=== PATIENT | female | born 1980 | race Caucasian/White ===

== ENCOUNTER → 2017-10-13 14:28 | Outpatient (CLI) | payer BC, SELFPAY ==
--- NOTE | 2017-10-13 14:30 | MM_ITS ---
MM Dig screening mamm BI w/CAD CAD Screening COMPARISON: None, this is baseline INDICATION: There is a history of breast cancer patient maternal aunt diagnosed before menopause. TECHNIQUE: Standard CC and MLO images were obtained. R2 CAD reviewed. FINDINGS: Prominent diffuse heterogenic fibroglandular densities are seen throughout both rest somewhat lessening the sensitivity of mammography . There is a possible asymmetric density with irregular borders lower outer quadrant right breast. This could very well be a summation shadow but recommend patient return for spot compression views and ultrasound will probably be necessary as well. There is no other suspicious lesion in either breast and there are no suspicious microcalcifications. IMPRESSION: Diffusely dense parenchymal pattern with possible asymmetric density right breast and suggest patient return for additional imaging BI-RADS Category: 0 Need Additional Imaging Evaluation RECOMMENDED FOLLOW-UP: IMM - IMMEDIATE FOLLOW-UP RECOMMENDED (A letter has been sent to the patient regarding results of the study.)
--- NOTE | 2017-10-13 14:32 | CA_ITS ---
PROCEDURE: 2-D M-mode and color Doppler study INDICATIONS FOR THE TEST: Chest pain + COPD Heart Murmur Tobacco Smoking Palpitations Fatigue+ Syncope Edema Hypertension Diabetes Mellitus Rheumatic Fever SOB NGUYEN Obesity+Hyperlipidemia Family History HD Additional History PATIENT INFORMATION HEIGHT: 63 WEIGHT:212 GENDER: Female B/P:108/79 2-D/M-MODE INTERPRETATION: 2-D MEASUREMENTS OBSERVED VALUES IN CMS Right Ventricular Dimension (RVDd) 2.4 Interventricular Septum (Thickness)(IVsd) 0.9 Left Ventricular Internal Dimensions(LVIDd) 4.6 Left Ventricular Posterior Wall (Thickness)(LVPWd) 0.9 Aortic Root 3.4 Aortic Cusp Separation 2.2 Left Atrial Dimensions (LAD) 3.7 2D 1. Left atrium is normal size, left ventricle is normal size, there is no concentric left ventricular hypertrophy, visually estimated ejection fraction of 55% with no obvious regional wall motion abnormality. 2. The right atrium and right ventricle are normal size and contractility. 3. The aortic, mitral and tricuspid valvular grossly normal. 4. The pulmonic valve is poorly visualized. 5. No significant pericardial effusion noted. DOPPLER INTERROGATION: Doppler interrogation of the aortic, mitral and tricuspid valvular presence of mild mitral and tricuspid regurgitation, tricuspid regurgitant jet velocity is insufficient for calculation of the right ventricular systolic pressure, diastolic parameters are within normal range. CONCLUSION: 1. Normal left ventricular size, preserved left ventricular systolic function, visually estimated ejection fraction 55% with no obvious regional wall motion abnormality, diastolic parameters are within normal range. 2. Mild mitral and tricuspid regurgitation 3. No significant pericardial effusion noted.
--- NOTE | 2017-10-13 15:18 | XR_ITS ---
XR chest 2V HISTORY: ITS.REASON: FH HEART DISEASE, ELEVATED CARDIAC CRP ORDERING PHYSICIAN: Sherman Arreola MD PATIENT AGE: 37 years COMPARISON: None available FINDINGS: The cardiomediastinal silhouette and pulmonary vascularity are within normal limits. The left somewhat poor inspiration. There are couple of small pulmonary nodules right lower lung silva most likely originating noncalcified granulomas. However if there is a strong smoking history suggested follow-up CT scan the chest for baseline evaluation of suspected pulmonary nodules. There is no pleural fluid. IMPRESSION: Probable evolving granulomatous disease no acute pneumonic infiltrate seen. See discussion above regarding pulmonary nodules
== END ==
PROVIDERS: PCP Physician Assistant; Visit Provider Obstetrics & Gynecology
DX: Z12.31 Encounter for screening mammogram for malignant neoplasm of breast (principal); R79.89 Other specified abnormal findings of blood chemistry
CPT/HCPCS: 71046; 77067; 93005; 93306

== ENCOUNTER → 2017-10-14 13:04 | Outpatient (CLI) | payer BC, SELFPAY ==
--- NOTE | 2017-10-14 13:07 | CT_ITS ---
CT chest wo con INDICATION: Abnormal chest x-ray with no previous studies for comparison ITS.REASON: PULMONARY NODULE ORDERING PHYSICIAN: Mandy Waldron PATIENT AGE: 37 years COMPARISON: None TECHNIQUE: Axial images are obtained without contrast. Sagittal and coronal reformatted images are reviewed as well. All CT scans at the facility use one or more dose reduction, viz: automated exposure control; ma/kV adjustment per patient size (including targeted exams where dose is matched to indication; i.e. head); or iterative reconstruction technique. FINDINGS: The lung silva are well expanded. There is no acute infiltrate seen. There is a small calcified right hilar node and a 2-3 small calcified granulomas in the peripheral aspect of the right lower lobe. There are no noncalcified pulmonary nodules. There is no abnormal superior mediastinal or or hilar lymphadenopathy. Cardiac size is borderline, the vascularity is normal. There is no pleural fluid. IMPRESSION: Evidence of old granulomatous disease, no other significant abnormality noted
[2017-10-14 17:55] LABS: Erythrocyte Sedimentation Rate 20 mm/hr (0-20)
== END ==
PROVIDERS: Internal Medicine; PCP Physician Assistant; Visit Provider Physician Assistant
DX: R91.1 Solitary pulmonary nodule (principal)
CPT/HCPCS: 36415; 71250; 85651

== ENCOUNTER → 2017-10-20 08:17 | Outpatient (CLI) | payer BC, SELFPAY | PROVIDERS: PCP Physician Assistant; Visit Provider Internal Medicine | DX: R79.89 Other specified abnormal findings of blood chemistry (principal); R07.9 Chest pain, unspecified; R06.09 Other forms of dyspnea; Z82.49 Family history of ischemic heart disease and other diseases of the circulatory system | CPT/HCPCS: 93017 ==

== ENCOUNTER → 2017-11-06 14:32 | Outpatient (CLI) | payer BC, SELFPAY ==
--- NOTE | 2017-11-06 14:36 | MM_ITS ---
MM Dig mamm DX unilat RT CAD, US breast RT complete INDICATION: Follow-up abnormal mammogram ORDERING PHYSICIAN: Mandy Waldron PATIENT AGE: 37 years COMPARISON: 10/13/2017 TECHNIQUE: Problem-solving views performed along with right breast ultrasound FINDINGS: There is dense fibroglandular tissue which decreases the sensitivity of mammography. Asymmetric density noted in the retroareolar region may represent a small cyst along with asymmetric fibroglandular tissue. There remains scattered areas of asymmetry on the rolled views. The asymmetric density in the inferior right breast on MLO view does appear to compress out. Right breast ultrasound: 4 mm hypoechoic area at 2:00, 4 mm hypoechoic area 6:00 near the nipple. No suspicious nodules are evident. IMPRESSION: Probably benign findings. No convincing evidence of malignancy. Asymmetric density is noted in the retroareolar region may represent overlying fibroglandular tissue and small cysts. Recommend 6 month mammographic and sonographic follow-up. Also recommend correlation with physical exam in this patient with dense breast tissue. Negative mammogram and negative ultrasound does not exclude the possibility of malignancy. BI-RADS Category: 3 Benign Finding Short Term Follow-up RECOMMENDED FOLLOW-UP: 6M - 6 MONTH FOLLOW-UP (A letter has been sent to the patient regarding results of the study.)
== END ==
PROVIDERS: PCP Physician Assistant; Visit Provider Physician Assistant
DX: R92.8 Other abnormal and inconclusive findings on diagnostic imaging of breast (principal)
CPT/HCPCS: 76641; 77065

== ENCOUNTER → 2018-05-21 14:27 | Outpatient (CLI) | payer BC, SELFPAY ==
--- NOTE | 2018-05-21 14:37 | MM_ITS ---
MM Dig mamm DX unilat RT CAD, US breast RT complete INDICATION: Follow-up abnormal mammogram ORDERING PHYSICIAN: Mandy Waldron PATIENT AGE: 37 years COMPARISON: 10/13/2017, 11/12/2017 TECHNIQUE: Standard images are performed along with spot compression views and rolled views and right breast ultrasound FINDINGS: There is dense fibroglandular tissue which decreases the sensitivity of mammography. Asymmetric density is once again noted in the retroareolar region slightly to the right of midline. Does appear less apparent especially on the focal spot compression view. This millimeters related to asymmetric fibroglandular tissue. No malignant appearing mass or malignant appearing microcalcification is evident. Right breast ultrasound: There is a 5 mm cyst at 6:00 which may in part account for the asymmetric density in the retroareolar region. No suspicious abnormalities are evident. There is heterogeneous pericolic fibroglandular tissue. IMPRESSION: Probably benign findings. Asymmetric density in the retroareolar region felt to be related to fibroglandular tissue and a small cyst. No convincing evidence of malignancy. Suggest repositioning screening mammogram in October 2018 BI-RADS Category: 2 Benign Finding(s) RECOMMENDED FOLLOW-UP: 6M - 6 MONTH FOLLOW-UP (A letter has been sent to the patient regarding results of the study.)
== END ==
PROVIDERS: PCP Physician Assistant; Visit Provider Physician Assistant
DX: R92.8 Other abnormal and inconclusive findings on diagnostic imaging of breast (principal)
CPT/HCPCS: 76641; 77065

== ENCOUNTER → 2018-11-19 16:19 | Outpatient (CLI) | payer BC, SELFPAY ==
--- NOTE | 2018-11-19 16:21 | MM_ITS ---
PROCEDURE: MM DIG SCREENING MAMM BI W/CAD CLINICAL INDICATION: screening There is a history of breast cancer in the patient's maternal aunt diagnosed in her 40s. COMPARISON: [facility] MM Dig screening mamm BI w/CAD from 10/13/2017 DXRT MM Dig mamm DX unilat RT CAD from 11/06/2017 DXRT MM Dig mamm DX unilat RT CAD from 05/21/2018 TECHNIQUE: Standard CC and MLO images were obtained. R2 CAD reviewed. FINDINGS: Moderate diffuse fibroglandular densities are seen in both breasts. The findings are fairly symmetrical bilaterally. There is no suspicious lesion in either breast and no suspicious microcalcifications. There couple nodes right axilla. IMPRESSION: Moderate breast density with no suspicious lesions seen BI-RAD Category: 1 Negative FOLLOW-UP: 1YR 1 Year Follow-up (A letter has been sent to the patient regarding results of the study.) Dictated by: Dr. Thang Beavre MD 11/21/2018 14:38 Signed by: <Electronically signed by Dr. Thang Beaver MD in [place]> 11/21/2018 14:38
== END ==
PROVIDERS: PCP Family Medicine; Visit Provider Obstetrics & Gynecology
DX: Z12.31 Encounter for screening mammogram for malignant neoplasm of breast (principal)
CPT/HCPCS: 77067

== ENCOUNTER → 2019-08-19 11:01 | Outpatient (CLI) | payer BC, SELFPAY ==
[2019-08-19 11:30] LABS: Basophils % 0.7 % (0.1-2.0); Eosinophils # 0.1 K/mm3 (0.0-0.4); Eosinophils % 2.1 % (0.1-12.0); Hematocrit 38.7 % (37.0-47.0); Hemoglobin 12.3 g/dL (12.2-16.2); Lymphocytes # 1.6 K/mm3 (0.7-4.5); Lymphocytes % 25.2 % (10-50); Mean Corpuscular HGB Conc 31.9 g/dL (31.8-35.4); Mean Corpuscular Hemoglobin 29.2 pg (27.0-31.2); Mean Corpuscular Volume 91.7 fl (81-99); Mean Platelet Volume 9.2 fl (7.4-10.4); Monocytes # 0.3 K/mm3 (0.1-1.0); Monocytes % 5.3 % (1.7-9.3); Neutrophils # 4.3 K/mm3 (1.8-7.8); Neutrophils % 66.6 % (37.0-80.0); Platelet Count 383 K/mm3 (142-424); Red Blood Count 4.22 M/mm3 (4.20-5.40); Red Cell Distribution Width 12.6 % (11.5-17.5); White Blood Count 6.4 K/mm3 (4.8-10.8)
[2019-08-19 12:58] LABS: Alanine Aminotransferase 12 U/L (12-78); Albumin Level 4.4 g/dl (3.5-5.0); Albumin/Globulin Ratio 1.5 (1.1-1.8); Alkaline Phosphatase 69 U/L (38-126); Anion Gap 10.7 mEq/L (5-15); Aspartate Amino Transferase 19 U/L (14-36); Bilirubin,Total 0.3 mg/dl (0.2-1.3); Blood Urea Nitrogen 11 mg/dl (7-17); Calcium 9.8 mg/dl (8.4-10.2); Carbon Dioxide 26 mmol/L (22.0-30.0); Chloride 103 mmol/L (98-107); Chol/HDL Ratio 2.3 (1-3.5); Cholesterol 169 mg/dl (140-200); Estimated Glomerular Filt Rate 111 ml/min (>60); GFR (African American) 135 ML/MIN (>60); Glucose 99 mg/dl (74-100); HDL Cholesterol 75 mg/dl (40-60); Potassium 4.7 mmoL/L (3.5-5.1); Sodium 135 mmol/L (136-145); Total Protein,Serum 7.4 g/dl (6.3-8.2); Triglycerides 96 mg/dl (30-150); VLDL Cholesterol 19 mg/dL (0-40)
[2019-08-19 13:09] LABS: Direct LDL Cholesterol 92.19 mg/dL (100-129)
[2019-08-19 13:10] LABS: Hemoglobin A1C 5.2 % (4.0-6.0)
[2019-08-19 13:18] LABS: Triiodothryronine (T3) Uptake 23 % (23.5-40.5)
[2019-08-19 13:31] LABS: Thyroid Stimulating Hormone 1.17 uIU/mL (0.465-4.68)
[2019-08-20 17:13] LABS: Insulin Level Total 16.3 uIU/mL (2.6-24.9)
== END ==
PROVIDERS: Visit Provider Family Medicine
DX: Z00.00 Encounter for general adult medical examination without abnormal findings (principal); R63.5 Abnormal weight gain; R53.83 Other fatigue
CPT/HCPCS: 36415; 80053; 80061; 83036; 83525; 84436; 84443; 84479; 85025

== ENCOUNTER → 2019-11-25 15:23 | Outpatient (CLI) | payer BC, SELFPAY ==
--- NOTE | 2019-11-25 15:23 | MM_ITS ---
PROCEDURE: MM DIG SCREENING MAMM BI W/CAD Digital Breast Tomosynthesis Included CLINICAL INDICATION: Routine Screening Mammogram There is a history of breast cancer in the patient's maternal aunt diagnosed at age 40. The patient currently is on control pills. COMPARISON: MG [facility] MM Dig screening mamm BI w/CAD from 10/13/2017 MG DXRT MM Dig mamm DX unilat RT CAD from 11/06/2017 MG DXRT MM Dig mamm DX unilat RT CAD from 05/21/2018 MG MM DIG SCREENING MAMM BI W/CAD from 11/19/2018 TECHNIQUE: Standard CC and MLO images and 3D Tomosynthesis was obtained. R2 CAD reviewed. FINDINGS: Prominent diffuse somewhat heterogenic fibroglandular densities are seen throughout both breasts. Praveen images are most helpful in this type of dense breast parenchyma. There is no suspicious lesion and no suspicious microcalcifications. IMPRESSION: Moderate breast density with no suspicious lesions seen BI-RAD Category: 1 Negative FOLLOW-UP: 1YR 1 Year Follow-up (A letter has been sent to the patient regarding results of the study.) Dictated by: Dr. Thang Beaver MD 11/28/2019 17:07 Dr. Thang Beaver MD in [place] 11/28/2019 17:07
[2019-11-25 18:21] LABS: T4 (Thyroxine) 12.7 ug/dl (5.53-11.0); Triiodothryronine (T3) Uptake 24 % (23.5-40.5)
[2019-11-25 18:35] LABS: Thyroid Stimulating Hormone 2.13 uIU/mL (0.465-4.68)
[2019-11-25 19:45] LABS: Intact Parathyroid Hormone 39.1 pg/mL (7.5-53.5)
== END ==
PROVIDERS: PCP Family Medicine; Visit Provider Obstetrics & Gynecology
DX: Z12.31 Encounter for screening mammogram for malignant neoplasm of breast (principal); Z01.419 Encounter for gynecological examination (general) (routine) without abnormal findings; R63.4 Abnormal weight loss; Z80.3 Family history of malignant neoplasm of breast
CPT/HCPCS: 36415; 77063; 77067; 83970; 84436; 84443; 84479

== ENCOUNTER → 2019-11-25 16:51 | Outpatient (CLI) | payer BC, SELFPAY | PROVIDERS: Visit Provider Obstetrics & Gynecology | DX: R53.83 Other fatigue (principal) | CPT/HCPCS: 36415; 83970; 84436; 84443; 84479 ==

== ENCOUNTER → 2020-11-17 07:46 | Outpatient (CLI) | payer BC, SELFPAY ==
[2020-11-17 16:42] LABS: Hemoglobin A1C 5.2 % (4.0-6.0)
[2020-11-17 16:47] LABS: Alanine Aminotransferase 12 U/L (12-78); Albumin Level 3.7 g/dl (3.5-5.0); Albumin/Globulin Ratio 1.4 (1.1-1.8); Alkaline Phosphatase 68 U/L (38-126); Anion Gap 11.5 mEq/L (5-15); Aspartate Amino Transferase 16 U/L (14-36); Bilirubin,Total 0.3 mg/dl (0.2-1.3); Blood Urea Nitrogen 12 mg/dl (7-17); Calcium 8.7 mg/dl (8.4-10.2); Carbon Dioxide 26 mmol/L (22.0-30.0); Chloride 104 mmol/L (98-107); Chol/HDL Ratio 2.8 (1-3.5); Cholesterol 146 mg/dl (140-200); Estimated Glomerular Filt Rate 110 ml/min (>60); GFR (African American) 133 ML/MIN (>60); Globulin 2.6 g/dL (1.3-3.2); Glucose 108 mg/dl (74-100); HDL Cholesterol 52 mg/dl (40-60); Potassium 4.5 mmoL/L (3.5-5.1); Sodium 137 mmol/L (136-145); Total Protein,Serum 6.3 g/dl (6.3-8.2); Triglycerides 158 mg/dl (30-150); VLDL Cholesterol 32 mg/dL (0-40)
[2020-11-17 16:50] LABS: Basophils # 0.1 K/mm3 (0-0.2); Basophils % 1.3 % (0.1-2.0); Eosinophils # 0.2 K/mm3 (0.0-0.4); Eosinophils % 2.3 % (0.1-12.0); Hematocrit 34.3 % (37.0-47.0); Hemoglobin 11.3 g/dL (12.2-16.2); Lymphocytes # 1.8 K/mm3 (0.7-4.5); Lymphocytes % 25.4 % (10-50); Mean Corpuscular HGB Conc 32.9 g/dL (31.8-35.4); Mean Corpuscular Hemoglobin 28.9 pg (27.0-31.2); Mean Corpuscular Volume 87.7 fl (81-99); Mean Platelet Volume 10.8 fl (7.4-10.4); Monocytes # 0.4 K/mm3 (0.1-1.0); Monocytes % 6.1 % (1.7-9.3); Neutrophils # 4.5 K/mm3 (1.8-7.8); Neutrophils % 64.9 % (37.0-80.0); Platelet Count 430 K/mm3 (142-424); Red Blood Count 3.91 M/mm3 (4.20-5.40); Red Cell Distribution Width 12.8 % (11.5-17.5)
[2020-11-17 16:57] LABS: Direct LDL Cholesterol 64.82 mg/dL (100-129)
[2020-11-17 17:04] LABS: 25-OH Vitamin D, Total 104 ng/mL (30-100)
[2020-11-17 17:36] LABS: Vitamin B12 378 pg/mL (239-931)
[2020-11-17 18:57] LABS: HCG Qualitative, Serum Negative (Negative)
[2020-11-17 19:15] LABS: Free Thyroxine Index 2.6 ug/dL (5.93-13.13); T4 (Thyroxine) 10.8 ug/dl (5.53-11.0); Triiodothryronine (T3) Uptake 24 % (23.5-40.5)
[2020-11-17 19:29] LABS: Thyroid Stimulating Hormone 0.74 uIU/mL (0.465-4.68)
[2020-11-18 10:14] LABS: FSH 2.5 mIU/mL (.); LH 1.1 mIU/mL (.)
[2020-11-18 11:54] LABS: Insulin Level Total 23.9 uIU/mL (2.6-24.9)
== END ==
PROVIDERS: Visit Provider Family Medicine
DX: Z00.00 Encounter for general adult medical examination without abnormal findings (principal); R63.5 Abnormal weight gain; R53.83 Other fatigue; N93.8 Other specified abnormal uterine and vaginal bleeding; E67.3 Hypervitaminosis D
CPT/HCPCS: 36415; 80053; 80061; 82306; 82607; 83001; 83002; 83036; 83525; 84436; 84443; 84479; 84703; 85025

== ENCOUNTER → 2020-11-30 16:10 | Outpatient (CLI) | payer BC, SELFPAY ==
--- NOTE | 2020-11-30 16:10 | MM_ITS ---
PROCEDURE: MM DIG SCREENING MAMM BI W/CAD Digital Breast Tomosynthesis Included CLINICAL INDICATION: screening mammogram COMPARISON: MG DXRT MM Dig mamm DX unilat RT CAD from 05/21/2018 MG MM DIG SCREENING MAMM BI W/CAD from 11/19/2018 MG MM DIG SCREENING MAMM BI W/CAD from 11/25/2019 TECHNIQUE: Standard CC and MLO images and 3D Tomosynthesis was obtained. R2 CAD reviewed. FINDINGS: The breasts are heterogeneously dense which may obscure small masses. No suspicious appearing mass, malignant-appearing microcalcification, architectural distortion, or skin thickening. No significant change IMPRESSION: No evidence of malignancy BI-RAD Category: 1 Negative FOLLOW-UP: 1 YR 1 Year Follow-up (A letter has been sent to the patient regarding results of the study.) Dictated by: Cody Villalobos MD 12/13/2020 08:59 Cody Villalobos MD in [place] 12/13/2020 08:59
== END ==
PROVIDERS: PCP Family Medicine; Visit Provider Obstetrics & Gynecology
DX: Z12.31 Encounter for screening mammogram for malignant neoplasm of breast (principal)
CPT/HCPCS: 77063; 77067

== ENCOUNTER → 2021-04-23 11:37 | Outpatient (CLI) | payer BC, SELFPAY ==
[2021-04-23 12:35] LABS: Basophils # 0.1 K/mm3 (0-0.2); Basophils % 0.8 % (0.1-2.0); Eosinophils # 0.1 K/mm3 (0.0-0.4); Eosinophils % 0.7 % (0.1-12.0); Hematocrit 37.5 % (37.0-47.0); Hemoglobin 12.1 g/dL (12.2-16.2); Lymphocytes # 1.6 K/mm3 (0.7-4.5); Lymphocytes % 15.5 % (10-50); Mean Corpuscular HGB Conc 32.3 g/dL (31.8-35.4); Mean Corpuscular Hemoglobin 29.7 pg (27.0-31.2); Mean Corpuscular Volume 91.8 fl (81-99); Mean Platelet Volume 9.7 fl (7.4-10.4); Monocytes # 0.3 K/mm3 (0.1-1.0); Monocytes % 2.9 % (1.7-9.3); Neutrophils # 8.1 K/mm3 (1.8-7.8); Neutrophils % 80.1 % (37.0-80.0); Platelet Count 424 K/mm3 (142-424); Red Blood Count 4.09 M/mm3 (4.20-5.40); Red Cell Distribution Width 12.8 % (11.5-17.5); White Blood Count 10.2 K/mm3 (4.8-10.8)
[2021-04-23 13:24] LABS: Chloride 103 mmol/L (98-107); Potassium 4.6 mmoL/L (3.5-5.1); Sodium 139 mmol/L (136-145)
[2021-04-23 13:26] LABS: Alanine Aminotransferase 13 U/L (12-78); Anion Gap 15.6 mEq/L (5-15); Aspartate Amino Transferase 20 U/L (14-36); Bilirubin,Unconjugated 0.1 mg/dL (0.0-1.1); Blood Urea Nitrogen 12 mg/dl (7-17); Carbon Dioxide 25 mmol/L (22.0-30.0); Estimated Glomerular Filt Rate 110 ml/min (>60); GFR (African American) 133 ML/MIN (>60)
[2021-04-23 13:27] LABS: Albumin Level 4.4 g/dl (3.5-5.0); Alkaline Phosphatase 64 U/L (38-126); Bilirubin,Direct 0.2 mg/dl (0.0-0.4); Bilirubin,Indirect 0.1 mg/dL (0.0-0.9); Bilirubin,Total 0.3 mg/dl (0.2-1.3); Calcium 9.3 mg/dl (8.4-10.2); Chol/HDL Ratio 2.3 (1-3.5); Cholesterol 180 mg/dl (140-200); Glucose 93 mg/dl (74-100); HDL Cholesterol 79 mg/dl (40-60); Total Protein,Serum 7.3 g/dl (6.3-8.2); Triglycerides 126 mg/dl (30-150); VLDL Cholesterol 25 mg/dL (0-40)
[2021-04-23 13:33] LABS: C-Reactive Protein 25.8 mg/L (0-4)
[2021-04-23 13:38] LABS: Direct LDL Cholesterol 82.24 mg/dL (100-129)
[2021-04-23 13:46] LABS: Erythrocyte Sedimentation Rate > 140 mm/hr (0-20)
[2021-04-23 13:53] LABS: Free T4 (Free Thyroxine) 0.71 ng/dl (0.78-2.19)
[2021-04-23 13:57] LABS: Thyroid Stimulating Hormone 2.01 uIU/mL (0.465-4.68)
--- NOTE | 2021-04-23 14:45 | CA_ITS ---
APPROVED REPORT EXAM: Comprehensive 2D, Doppler, and color-flow Echocardiogram Hearing And Speech Assistant: Sally Gaines RT(R) Ht: 5 ft 2 in Wt: 223lbs BSA: 2.00 BP: 133/74 mmHg Indications: CP, SOB, Family history of HD. 2D Dimensions LVOT 1.93 cm (M/F) 1.5-2.5 LA Volume 32.20 mL LA Volume Index [id number] mL/m2 (M/F) 16-34 M-Mode Dimensions RVDd 3.00 cm (0.9-2.6) LA Diam 3.32 cm (1.9-4.0) LVDd 4.26 cm (3.5-5.7) Ao Diam 2.36 cm (2.0-3.7) LVDs 2.89 cm (3.5-5.7) IVSd 0.53 cm (0.6-1.1) PWd 0.84 cm (0.6-1.1) EF (Teich) 60.80% FS 32.20% EDV (Teich) 81.30 mL ESV (Teich) 31.90 mL LV Diastology E Decel Time 193.00 (160-240 msec) E/A Ratio 1.1 MED E' 8.70 (< 7 cm/sec) E'/MED E' Ratio 11.46 (>14) LAT E' 15.20 (<10 cm/sec) E/LAT E' Ratio 6.56 (>14) Mitral Valve MV E Max Jovanni. 100.00 (40-130 cm/s) MV A Velocity 87.00 (40-130 cm/s) E/A Ratio 1.15 MV Decel. Time 193.00 (160-240 ms) MV PHT 57.00 ms Left Ventricle Left atrium normal size, left ventricle is normal size, there is no concentric left ventricular hypertrophy, visually estimated ejection fraction 55% with no regional wall motion abnormality, diastolic parameters are within normal range. Right Ventricle Right atrium and right ventricle are normal size and contractility. Aortic Valve Aortic valve is grossly normal, there is no aortic stenosis or aortic insufficiency. Mitral Valve Mitral valve is grossly normal, there is trace mitral regurgitation. Tricuspid Valve Tricuspid valve grossly normal, there is trace tricuspid regurgitation, tricuspid regurgitation jet velocity is inadequate for calculation of the right ventricular systolic pressure. Pulmonic Valve Pulmonic valve is poorly visualized. Great Vessels Aortic root is normal size. Inferior vena cava is poorly visualized. Pericardium No significant pericardial effusion noted. Conclusion 1. Normal left ventricular size, preserved left ventricular systolic function, visually estimated ejection fraction 55% with no regional wall motion abnormality, diastolic parameters are within normal range. 2. Trace mitral and tricuspid regurgitation. 3. No significant pericardial effusion noted. Electronically signed by : Clyde Bello MD 04/23/2021 17:42:31
[2021-04-24 13:26] LABS: Insulin Level Total 26.3 uIU/mL (2.6-24.9)
== END ==
PROVIDERS: PCP Family Medicine; Visit Provider Physician Assistant
DX: R07.89 Other chest pain (principal); I63.9 Cerebral infarction, unspecified; M62.89 Other specified disorders of muscle; I11.9 Hypertensive heart disease without heart failure; E11.9 Type 2 diabetes mellitus without complications; R53.83 Other fatigue
CPT/HCPCS: 36415; 80048; 80061; 80076; 83525; 84439; 84443; 85025; 85651; 86140; 93306

== ENCOUNTER → 2021-04-27 13:26 | Outpatient (CLI) | payer BC, SELFPAY ==
--- NOTE | 2021-04-27 | CA_ITS ---
APPROVED REPORT Exam: Exercise Treadmill Technologist: Meghan Kong, Ht: 5 ft 2 in Wt: 223 lbs BSA: 2.00 m2 HR: 81 bpm BP: 131/65 mmHg Medical History Medications: TricyclEN,,,,, Stress Test Details Test: Trena HR Resting HR: 109 bpm Max Heart Rate (APMHR): 179 bpm Max HR Achieved: 170 bpm Target HR (85% APMHR): 152 bpm % of APMHR: 95 Recovery HR: 126 bpm BP Resting BP: 150/76 mmHg Max BP: 159/70 mmHg Recovery BP: 153.0/66.0 mmHg ECG Clinical Exercise duration: 04:14 min Highest Stage Achieved: Exercise capacity: 7.0 METs Stress ECG Conclusion During trena protocol pt experinced SOB. No CP noted. No arrhythmias noted. Test Summary REST . . . . . . . Sitting REST . . . . . . . Sitting REST . . . . . . . Standing REST 03:18 0.0 0.0 109 . 150/ 76 . . Stage 1 01:00 10.0 1.7 123 . . . . Stage 1 02:00 10.0 1.7 141 . . . . Stage 1 03:00 10.0 1.7 149 . 159/ 70 . . Stage 2 01:00 12.0 2.5 156 . . . . Stage 2 01:14 12.0 2.5 165 . . . Stop exercise at 04:14 RECOVERY 01:00 0.0 0.0 138 . . . . RECOVERY 02:00 0.0 0.0 113 . . . . RECOVERY 03:00 0.0 0.0 101 . 153/ 66 . . RECOVERY 04:00 0.0 0.0 99 . 153/ 66 . . RECOVERY 05:00 0.0 0.0 89 . 153/ 66 . . RECOVERY 05:30 0.0 0.0 93 . 153/ 66 . . Electronically signed by : Clyde Bello MD 04/27/2021 15:07:08
--- NOTE | 2021-04-27 13:49 | CA_ITS ---
APPROVED REPORT EXAM: Comprehensive 2D, Doppler, and color-flow Echocardiogram Branch Employment Coordinator: Sally Gaines RT(R) Ht: 5 ft 2 in Wt: 223lbs BSA: 2.00 BP: 133/74 mmHg Indications: CP, SOB Stress Test Details HR Max Heart Rate (APMHR): 179.451355 bpm Target HR (85% APMHR): 152.534594 bpm BP ECG Conclusion 1. Patient exercised on Jesus protocol for 4 minutes and 14 seconds, achieved 7.1 METs of workload on treadmill, the blood pressure response to exercise was abnormal, patient describes no chest pain with exercise. 2. Normal left ventricular systolic function with no regional wall motion abnormality at rest, with exercise there is no segmental wall motion abnormality to suggest underlying ischemic heart disease. 3. Normal exercise stress echo except for abnormal blood pressure response with exercise. Electronically signed by : Clyde Bello MD 04/27/2021 15:09:12
[2021-04-27 14:27] LABS: Prothrombin Time 10.3 seconds (10.1-12.5)
[2021-04-27 14:31] LABS: D-Dimer 0.57 ug/mL (0.0-0.5)
--- NOTE | 2021-04-27 14:41 | XR_ITS ---
FINAL REPORT TECHNIQUE: Chest PA & Lateral CLINICAL HISTORY: CHEST PAIN COMPARISON: October 13, 2017 FINDINGS: 2 views of the chest were performed. The heart size is normal. The mediastinum is within normal limits. There is no acute cardiopulmonary process. There are calcified granulomas in the right middle lobe. There are no pleural effusions. There is no pneumothorax. The bony thorax appears intact. IMPRESSION: No acute cardiopulmonary process. Calcified granulomas in the right middle lobe. Reviewed, Interpreted and Dictated by Jesse Tran MD Transcribed by Analilia Sung Authenticated by Jesse Tran MD on 04/27/2021 04:00:13 PM [facility]
[2021-04-27 15:09] LABS: Uric Acid 4.8 mg/dl (2.5-6.2)
[2021-04-27 15:14] LABS: C-Reactive Protein 17.5 mg/L (0-4)
[2021-04-27 16:16] LABS: Vitamin B12 423 pg/mL (239-931)
[2021-04-27 16:17] LABS: Folate 8.69 ng/mL
[2021-04-29 08:17] LABS: Antistreptolysin O Ab 46.2 IU/mL (0.0-200.0); RA Latex Turbid. <10.0 IU/mL (<14.0)
[2021-04-30 12:44] LABS: Anti-DNA (DS) Ab Qn 1 IU/mL (0-9); RNP Antibodies <0.2 AI (0.0-0.9); Sjogren's Anti-SS-A 0.2 AI (0.0-0.9); Sjogren's Anti-SS-B <0.2 AI (0.0-0.9)
[2021-05-21 18:00] LABS: Antinuclear Antibodies (ANA) NEGATIVE
== END ==
PROVIDERS: Visit Provider Internal Medicine
DX: R07.89 Other chest pain (principal); M62.89 Other specified disorders of muscle; R53.83 Other fatigue
CPT/HCPCS: 36415; 71046; 82607; 82746; 84550; 85378; 85610; 86038; 86060; 86140; 86225; 86235; 86431; 93017; 93350

== ENCOUNTER → 2021-12-14 08:40 | Outpatient (CLI) | payer BC, SELFPAY | PROVIDERS: PCP Physician Assistant; Visit Provider Physician Assistant | DX: M13.0 Polyarthritis, unspecified (principal) ==

== ENCOUNTER → 2021-12-14 16:11 | Outpatient (CLI) | payer BC, SELFPAY ==
--- NOTE | 2021-12-14 16:12 | MM_ITS ---
PROCEDURE INFORMATION: Exam: MG Bilateral Screening 3D Mammography Exam date and time: 12/14/2021 4:04 PM Age: 41 years old Clinical indication: Screening. A maternal aunt had breast cancer. TECHNIQUE: Imaging protocol: Bilateral Screening tomosynthesis and 2D mammography including computer-aided detection (CAD) when performed. COMPARISON: 1. MG MM DIG SCREENING MAMM BI W/CAD 11/30/2020 4:28 PM 2. MG MM DIG SCREENING MAMM BI W/CAD 11/25/2019 3:47 PM 3. MG MM DIG SCREENING MAMM BI W/CAD 11/19/2018 4:32 PM 4. MG DXRT MM Dig mamm DX unilat RT CAD 05/21/2018 2:48 PM FINDINGS: MAMMOGRAPHY: Breast composition: The breasts are heterogeneously dense, which may obscure small masses. Mass: None. Architectural distortion: None. Calcifications: No suspicious calcifications. Asymmetric density: None. Skin thickening: None. Axillary adenopathy: None. IMPRESSION: No mammographic evidence of malignancy. Annual screening is recommended unless otherwise clinically indicated. ASSESSMENT: BI-RADS Category 1: Negative
--- NOTE | 2021-12-14 16:13 | XR_ITS ---
PROCEDURE INFORMATION: Exam: XR Chest Exam date and time: 12/14/2021 4:25 PM Age: 41 years old Clinical indication: Abnormal findings; Lung mass or nodule; Not specified; Additional info: Follow-up on lung nodule TECHNIQUE: Imaging protocol: Radiologic exam of the chest. Views: 2 views. COMPARISON: CR XR CHEST 2V 04/27/2021 2:45 PM FINDINGS: Lungs: Some asymmetric chronic ovoid and tubular opacities projected over the mid-lateral right chest on the frontal view, not as well seen on the lateral radiograph; corresponding opacities in the superior segment of right lower lobe. These correspond with cluster of partially calcified granulomas in the right lower lobe seen on a previous chest CT of 10/14/2017. No definite change compared with the prior exams. No focal consolidation or acute findings in the left lung. Question tiny granuloma or dense blood vessel at the lateral left lung base, unchanged compared with the previous chest x-ray. Pleural spaces: Unremarkable. No significant pleural effusion. No pneumothorax. Heart/Mediastinum: The cardiac silhouette is normal. Bones/joints: There are mild spinal degenerative changes, with multilevel disc narrrowing and spondylosis. Soft tissues: Chronic right upper quadrant abdominal surgical clips, correlate for cholecystectomy. IMPRESSION: 1. No acute findings or change compared with 04/27/2021. 2. Chronic granulomatous changes in the superior segment of the right lower lobe as seen on prior CT of 10/14/2017, corresponding with some peripheral nodular densities seen on today's chest x-ray.
--- NOTE | 2021-12-14 16:13 | XR_ITS ---
PROCEDURE INFORMATION: Exam: XR Abdomen Exam date and time: 12/14/2021 4:25 PM Age: 41 years old Clinical indication: Abdominal pain; Flank; Left; Additional info: Left flank pain TECHNIQUE: Imaging protocol: Radiologic exam of the abdomen. Views: Frontal supine view of the abdomen. 1 View. Two images received. COMPARISON: CR XR CHEST 2V 04/27/2021 2:45 PM FINDINGS: Lungs: Tiny calcified granulomas in the left upper quadrant, corresponding with splenic granulomas seen on the prior CT from 10/14/2017. Gastrointestinal tract: Nonobstructive bowel gas pattern, mild gaseous and fecal distention of the proximal colon and sigmoid colon. No dilated loops. Organs: Cholecystectomy clips in the right upper quadrant. No definite renal calculi. There are 2 tiny calcifications of 1-2 mm in the lower left pelvis which could be phleboliths or urinary tract stones. Bones/joints: Mild spinal degenerative changes and sacroiliitis. Pelvic enthesophytes.There is no evidence of acute fracture. Soft tissues: No acute findings in the soft tissues. IMPRESSION: 1. No calcified renal stones are detected. However, there is a cluster of 2 tiny calcifications in the lower left pelvis of 1-2 mm which could be phleboliths versus urinary tract stones. 2. Nonobstructive bowel gas pattern. 3. Calcified splenic granulomas. 4. Additional nonemergency and chronic findings as above.
[2021-12-14 19:08] LABS: Basophils # 0.1 K/mm3 (0-0.2); Basophils % 0.9 % (0.1-2.0); Eosinophils # 0.2 K/mm3 (0.0-0.4); Eosinophils % 2.2 % (0.1-12.0); Hematocrit 36.1 % (37.0-47.0); Hemoglobin 11.9 g/dL (12.2-16.2); Lymphocytes # 2.1 K/mm3 (0.7-4.5); Lymphocytes % 21.5 % (10-50); Mean Corpuscular HGB Conc 33.1 g/dL (31.8-35.4); Mean Corpuscular Hemoglobin 29.8 pg (27.0-31.2); Mean Platelet Volume 10.8 fl (7.4-10.4); Monocytes # 0.5 K/mm3 (0.1-1.0); Monocytes % 5.5 % (1.7-9.3); Neutrophils # 6.8 K/mm3 (1.8-7.8); Neutrophils % 69.9 % (37.0-80.0); Platelet Count 497 K/mm3 (142-424); Red Blood Count 4.01 M/mm3 (4.20-5.40); Red Cell Distribution Width 12.7 % (11.5-17.5); White Blood Count 9.7 K/mm3 (4.8-10.8)
[2021-12-14 19:30] LABS: Alanine Aminotransferase 17 U/L (12-78); Albumin Level 3.8 g/dl (3.5-5.0); Albumin/Globulin Ratio 1.4 (1.1-1.8); Alkaline Phosphatase 91 U/L (38-126); Anion Gap 14.5 mEq/L (5-15); Aspartate Amino Transferase 25 U/L (14-36); Bilirubin,Total < 0.1 mg/dl (0.2-1.3); Blood Urea Nitrogen 14 mg/dl (7-17); Calcium 8.4 mg/dl (8.4-10.2); Carbon Dioxide 23 mmol/L (22.0-30.0); Chloride 103 mmol/L (98-107); Chol/HDL Ratio 2.8 (1-3.5); Cholesterol 165 mg/dl (140-200); Estimated Glomerular Filt Rate 92 ml/min (>60); GFR (African American) 111 ML/MIN (>60); Globulin 2.7 g/dL (1.3-3.2); Glucose 106 mg/dl (74-100); HDL Cholesterol 59 mg/dl (40-60); Potassium 4.5 mmoL/L (3.5-5.1); Sodium 136 mmol/L (136-145); Total Protein,Serum 6.5 g/dl (6.3-8.2); Triglycerides 113 mg/dl (30-150); VLDL Cholesterol 23 mg/dL (0-40)
[2021-12-14 19:41] LABS: C-Reactive Protein 26.1 mg/L (0-4); Direct LDL Cholesterol 84.41 mg/dL (100-129)
[2021-12-14 20:01] LABS: Thyroid Stimulating Hormone 2.18 uIU/mL (0.465-4.68)
[2021-12-14 20:11] LABS: Erythrocyte Sedimentation Rate 27 mm/hr (0-20)
[2021-12-14 20:20] LABS: Vitamin B12 294 pg/mL (239-931)
[2021-12-14 21:45] LABS: Hemoglobin A1C 5.4 % (4.0-6.0)
[2021-12-17 14:10] LABS: C-Peptide 4.7 ng/mL (1.1-4.4); Insulin Level Total 28.5 uIU/mL (2.6-24.9)
[2021-12-24 20:13] LABS: 1,25 Dihydroxy Vitamin D 67 pg/mL (.); 1,25-Dihydroxy, Vitamin D-2 <10 pg/mL (.); 1,25-Dihydroxy, Vitamin D-3 63 pg/mL (.)
== END ==
PROVIDERS: Physician Assistant; PCP Internal Medicine Cardiovascular Disease; Visit Provider Obstetrics & Gynecology
DX: Z12.31 Encounter for screening mammogram for malignant neoplasm of breast (principal); M13.0 Polyarthritis, unspecified; Z82.49 Family history of ischemic heart disease and other diseases of the circulatory system; R10.9 Unspecified abdominal pain; E67.3 Hypervitaminosis D; Z79.899 Other long term (current) drug therapy; R79.89 Other specified abnormal findings of blood chemistry
CPT/HCPCS: 71046; 74018; 77063; 77067; 80053; 80061; 82533; 82607; 82652; 83036; 83525; 84443; 84681; 85025; 85651; 86140

== ENCOUNTER → 2021-12-20 07:09 | Outpatient (CLI) | payer BC, SELFPAY ==
[2021-12-20 18:59] LABS: Iron 78 ug/dL (37-170)
[2021-12-20 19:09] LABS: Total Iron Binding Capacity 337 ug/dL (265-497)
[2021-12-20 19:23] LABS: 25-OH Vitamin D, Total 44.4 ng/mL (30-100)
[2021-12-20 19:36] LABS: Ferritin 49.7 ng/ml (6.24-137)
[2021-12-21 15:25] LABS: Intact Parathyroid Hormone 3.8 pg/mL (7.5-53.5)
== END ==
PROVIDERS: PCP Physician Assistant; Visit Provider Physician Assistant
DX: R10.9 Unspecified abdominal pain (principal); D64.9 Anemia, unspecified; R79.89 Other specified abnormal findings of blood chemistry; R79.82 Elevated C-reactive protein (CRP)
CPT/HCPCS: 82306; 82728; 83540; 83550; 83970

== ENCOUNTER → 2021-12-25 06:36 | Outpatient (CLI) | payer BC, SELFPAY ==
--- NOTE | 2021-12-25 06:37 | CT_ITS ---
FINAL REPORT TECHNIQUE: Axial images through the abdomen and pelvis was performed by computed tomography. This study was performed with techniques to keep radiation doses as low as reasonably achievable (ALARA). Individualized dose reduction techniques using automated exposure control or adjustment of mA and/or kV according to the patient's size were employed. CLINICAL HISTORY: abnormal finding on x-ray, left flank pain FINDINGS: Abdomen: Lung bases are clear. Liver, spleen, pancreas and adrenal glands have a normal CT appearance in their limited unenhanced state. The patient is status post cholecystectomy. The kidneys show no stone disease or obstruction. No obvious renal mass is present. No ureteral stones are present. Pelvis: There is mild fecal impaction. The appendix is not definitely identified but there are no secondary findings to suggest appendicitis. No distal ureteral stones are seen. Bladder is unremarkable. There are bilateral ovarian cysts measuring up to 3.4 cm on the right and 3.6 cm on the left. The uterus is unremarkable. No fluid collection or adenopathy is seen. IMPRESSION: Fecal impaction. No evidence of upper urinary tract stone disease or obstruction. Bilateral ovarian cysts. Reviewed, Interpreted and Dictated by Robert Haas MD Transcribed by Bri Jenkins Authenticated and [facility]
[2021-12-25 18:40] LABS: Albumin Level 3.6 g/dl (3.5-5.0); Calcium 8.5 mg/dl (8.4-10.2); Magnesium 1.9 mg/dl (1.6-2.3); Phosphorous 3.8 mg/dl (2.5-4.5)
[2021-12-25 18:50] LABS: Intact Parathyroid Hormone 63.1 pg/mL (7.5-53.5)
== END ==
PROVIDERS: PCP Physician Assistant; Visit Provider Physician Assistant
DX: R10.9 Unspecified abdominal pain (principal); R93.5 Abnormal findings on diagnostic imaging of other abdominal regions, including retroperitoneum
CPT/HCPCS: 74176; 82040; 82310; 83735; 83970; 84100

== ENCOUNTER → 2021-12-25 14:00 | Outpatient (CLI) | payer BC, SELFPAY | PROVIDERS: PCP Physician Assistant; Visit Provider Physician Assistant | DX: N20.0 Calculus of kidney (principal) | CPT/HCPCS: 83970 ==

== ENCOUNTER → 2022-07-26 14:41 | Outpatient (CLI) | payer BC, SELFPAY ==
--- NOTE | 2022-07-26 | ECG_ITS ---
APPROVED REPORT Exam: Resting ECG HR:73 bpm ECG Measurements Heart Rate 73 AXES AR 166 P 60 QRSd 92 QRS 58 QT 384 T 16 QTc 410 Conclusion SINUS RHYTHM NORMAL ECG UNCONFIRMED REPORT Electronically signed by : Kody Castro MD 07/27/2022 15:31:05
== END ==
PROVIDERS: PCP Family Medicine
DX: E66.9 Obesity, unspecified (principal); Z68.41 Body mass index [BMI] 40.0-44.9, adult
CPT/HCPCS: 93005

== ENCOUNTER → 2022-09-10 12:24 | Outpatient (CLI) | payer BC, SELFPAY ==
--- NOTE | 2022-09-10 12:26 | US_ITS ---
FINAL REPORT TECHNIQUE: Ultrasound images of the kidneys and bladder were obtained. CLINICAL HISTORY: .pelvic pain-- hematuria FINDINGS: The right kidney measures 10.3 cm in length. It is normal in echogenicity. There is no hydronephrosis. There is a small probable stone in the lower pole of the right kidney. The left kidney measures 10.5 cm in length. It is normal in echogenicity. There is no hydronephrosis. The spleen is unremarkable. IMPRESSION: Small probable right renal stone. Reviewed, Interpreted and Dictated by Kevin Martinez III, MD Transcribed by Bri Jenkins Authenticated and [facility]
--- NOTE | 2022-09-10 12:26 | US_ITS ---
FINAL REPORT CLINICAL HISTORY: hematuria FINDINGS: Limited sonographic images of the urinary bladder were obtained. Bladder volume is 463.47 mL. Postvoid volume is 18.14 mL. IMPRESSION: Small amount of postvoid residual of 18 mL. Reviewed, Interpreted and Dictated by Kevin Martinez III, MD Transcribed by Bri Jenkins Authenticated and [facility]
== END ==
PROVIDERS: PCP Family Medicine; Visit Provider Family Medicine
DX: R10.30 Lower abdominal pain, unspecified (principal); R31.9 Hematuria, unspecified
CPT/HCPCS: 76770; 76857

== ENCOUNTER → 2022-10-14 08:23 | Outpatient (CLI) | payer BC, SELFPAY ==
[2022-10-14 11:07] LABS: Vitamin B12 495 pg/mL (239-931)
[2022-10-14 11:58] LABS: 25-OH Vitamin D, Total 70.2 ng/mL (30-100)
[2022-10-14 17:08] LABS: Basophils # 0.1 K/mm3 (0-0.2); Basophils % 0.8 % (0.1-2.0); Eosinophils # 0.3 K/mm3 (0.0-0.4); Eosinophils % 3.3 % (0.1-12.0); Hematocrit 38.3 % (37.0-47.0); Lymphocytes # 2.4 K/mm3 (0.7-4.5); Lymphocytes % 29.4 % (10-50); Mean Corpuscular HGB Conc 31.2 g/dL (31.8-35.4); Mean Corpuscular Hemoglobin 28.2 pg (27.0-31.2); Mean Corpuscular Volume 90.3 fl (81-99); Mean Platelet Volume 10.5 fl (7.4-10.4); Monocytes # 0.6 K/mm3 (0.1-1.0); Monocytes % 6.8 % (1.7-9.3); Neutrophils # 4.9 K/mm3 (1.8-7.8); Neutrophils % 59.7 % (37.0-80.0); Platelet Count 522 K/mm3 (142-424); Red Blood Count 4.24 M/mm3 (4.20-5.40); Red Cell Distribution Width 12.8 % (11.5-17.5); White Blood Count 8.1 K/mm3 (4.8-10.8)
[2022-10-14 17:12] LABS: Alanine Aminotransferase 24 U/L (12-78); Albumin/Globulin Ratio 1.4 (1.1-1.8); Alkaline Phosphatase 82 U/L (38-126); Anion Gap 12.5 mEq/L (5-15); Aspartate Amino Transferase 23 U/L (14-36); Blood Urea Nitrogen 17 mg/dl (7-17); Calcium 9.7 mg/dl (8.4-10.2); Carbon Dioxide 22 mmol/L (22.0-30.0); Chloride 107 mmol/L (98-107); Cholesterol 182 mg/dl (140-200); Estimated Glomerular Filt Rate 91 ml/min (>60); GFR (African American) 111 ML/MIN (>60); Globulin 2.8 g/dL (1.3-3.2); Glucose 100 mg/dl (74-100); HDL Cholesterol 61 mg/dl (40-60); Potassium 4.5 mmoL/L (3.5-5.1); Sodium 137 mmol/L (136-145); Total Protein,Serum 6.8 g/dl (6.3-8.2); Triglycerides 149 mg/dl (30-150); VLDL Cholesterol 30 mg/dL (0-40)
[2022-10-14 17:13] LABS: Bilirubin,Total < 0.1 mg/dl (0.2-1.3)
[2022-10-14 17:23] LABS: Direct LDL Cholesterol 85.65 mg/dL (100-129)
[2022-10-14 17:34] LABS: Hemoglobin A1C 5.4 % (4.0-6.0)
[2022-10-14 17:42] LABS: Thyroid Stimulating Hormone 2.05 uIU/mL (0.465-4.68)
[2022-10-16 12:13] LABS: Insulin Level Total 23.2 uIU/mL (2.6-24.9)
== END ==
PROVIDERS: Nurse Practitioner Family; PCP Family Medicine; Visit Provider Family Medicine
DX: R53.83 Other fatigue (principal); E10.65 Type 1 diabetes mellitus with hyperglycemia; E88.81 Metabolic syndrome and other insulin resistance; E66.9 Obesity, unspecified; Z68.41 Body mass index [BMI] 40.0-44.9, adult
CPT/HCPCS: 36415; 80053; 80061; 82306; 82607; 83036; 83525; 84443; 85025

== ENCOUNTER → 2022-12-20 16:51 | Outpatient (CLI) | payer BC, SELFPAY ==
--- NOTE | 2022-12-20 16:52 | MM_ITS ---
PROCEDURE INFORMATION: Exam: MG Bilateral Screening 3D Mammography Exam date and time: 12/20/2022 4:41 PM Age: 42 years old Clinical indication: Screening mammogram. Additional info: Screening mammogram TECHNIQUE: Imaging protocol: Bilateral Screening tomosynthesis and 2D mammography including computer-aided detection (CAD) when performed. COMPARISON: 1. MG MM DIG SCREENING MAMM BI W/CAD 12/14/2021 4:04 PM 2. MG MM DIG SCREENING MAMM BI W/CAD 11/30/2020 4:28 PM 3. MG MM DIG SCREENING MAMM BI W/CAD 11/25/2019 3:47 PM 4. MG MM DIG SCREENING MAMM BI W/CAD 11/19/2018 4:32 PM FINDINGS: MAMMOGRAPHY: Breast composition: The breast is heterogeneously dense, which may obscure small masses. Mass: None. Architectural distortion: No new or suspicious architectural distortion. Calcifications: No new or suspicious calcifications are present Asymmetric density: No new or suspicious asymmetric density is present Skin thickening: None. Axillary adenopathy: None. IMPRESSION: No mammographic evidence of malignancy. Recommend annual screening mammography unless otherwise clinically indicated. ASSESSMENT: BI-RADS category 1: Negative
== END ==
PROVIDERS: PCP Family Medicine; Visit Provider Obstetrics & Gynecology
DX: Z12.31 Encounter for screening mammogram for malignant neoplasm of breast (principal)
CPT/HCPCS: 77063; 77067

== ENCOUNTER → 2023-02-04 07:35 | Outpatient (CLI) | payer BC, SELFPAY ==
[2023-02-04 17:14] LABS: Basophils # 0.1 K/mm3 (0-0.2); Basophils % 0.8 % (0.1-2.0); Eosinophils # 0.2 K/mm3 (0.0-0.4); Eosinophils % 2.8 % (0.1-12.0); Hematocrit 37.6 % (37.0-47.0); Hemoglobin 12.5 g/dL (12.2-16.2); Lymphocytes # 2.7 K/mm3 (0.7-4.5); Lymphocytes % 31.1 % (10-50); Mean Corpuscular HGB Conc 33.2 g/dL (31.8-35.4); Mean Corpuscular Hemoglobin 30.2 pg (27.0-31.2); Mean Corpuscular Volume 90.9 fl (81-99); Mean Platelet Volume 9.4 fl (7.4-10.4); Monocytes # 0.6 K/mm3 (0.1-1.0); Monocytes % 6.6 % (1.7-9.3); Neutrophils # 5.1 K/mm3 (1.8-7.8); Neutrophils % 58.6 % (37.0-80.0); Platelet Count 461 K/mm3 (142-424); Red Blood Count 4.13 M/mm3 (4.20-5.40); Red Cell Distribution Width 12.7 % (11.5-17.5); White Blood Count 8.7 K/mm3 (4.8-10.8)
[2023-02-04 18:07] LABS: Alanine Aminotransferase 18 U/L (12-78); Albumin Level 4.2 g/dl (3.5-5.0); Albumin/Globulin Ratio 1.4 (1.1-1.8); Alkaline Phosphatase 78 U/L (38-126); Amylase 53 U/L (30-110); Anion Gap 13.2 mEq/L (5-15); Aspartate Amino Transferase 23 U/L (14-36); Bilirubin,Total 0.2 mg/dl (0.2-1.3); Blood Urea Nitrogen 10 mg/dl (7-17); Calcium 9.4 mg/dl (8.4-10.2); Carbon Dioxide 29 mmol/L (22.0-30.0); Chloride 99 mmol/L (98-107); Estimated Glomerular Filt Rate 91 ml/min (>60); GFR (African American) 111 ML/MIN (>60); Glucose 102 mg/dl (74-100); Lipase 94 U/L (23-300); Potassium 4.2 mmoL/L (3.5-5.1); Sodium 137 mmol/L (136-145); Total Protein,Serum 7.2 g/dl (6.3-8.2)
[2023-02-04 18:29] LABS: Troponin I < 0.01 ng/ml (0.00-0.034)
[2023-02-04 18:39] LABS: Thyroid Stimulating Hormone 1.88 uIU/mL (0.465-4.68)
== END ==
PROVIDERS: PCP Nurse Practitioner Family; Visit Provider Nurse Practitioner Family
DX: R07.9 Chest pain, unspecified (principal); R53.83 Other fatigue; I10 Essential (primary) hypertension
CPT/HCPCS: 80053; 82150; 83690; 84443; 84484; 85025

== ENCOUNTER → 2023-02-06 12:02 | Outpatient (CLI) | payer BC, SELFPAY ==
[2023-02-06 12:39] LABS: Erythrocyte Sedimentation Rate 34 mm/hr (0-20)
[2023-02-06 12:43] LABS: D-Dimer 0.94 ug/mL (0.0-0.5)
[2023-02-06 13:05] LABS: C-Reactive Protein 25.7 mg/L (0-4)
== END ==
PROVIDERS: PCP Family Medicine; Visit Provider Internal Medicine
DX: R07.89 Other chest pain (principal); R53.83 Other fatigue; Z82.49 Family history of ischemic heart disease and other diseases of the circulatory system
CPT/HCPCS: 36415; 85378; 85651; 86140

== ENCOUNTER → 2023-02-07 11:15 | Outpatient (CLI) | payer BC, SELFPAY ==
--- NOTE | 2023-02-07 11:25 | CT_ITS ---
FINAL REPORT TECHNIQUE: Axial imaging of the chest is obtained after the administration of contrast. 3-D MIP reformatted images were also obtained and reviewed per PE protocol. This study was performed with techniques to keep radiation doses as low as reasonably achievable (ALARA). Individualized dose reduction techniques using automated exposure control or adjustment of mA and/or kV according to the patient's size were employed. CLINICAL HISTORY: elevated d dimer COMPARISON: 10/14/2017 FINDINGS: The pulmonary arteries are well filled. There is no evidence of pulmonary embolus. There is no aortic dissection or intimal flap. There is a left breast nodule which is new measuring 2.2 cm. There is no mediastinal, hilar, or axillary lymphadenopathy. The lungs are clear. There are multiple calcifications in the right lower lobe with focal area of air trapping. There is no pleural or pericardial effusion. Limited evaluation of the upper abdomen is without acute abnormality. No acute osseous abnormality. IMPRESSION: No evidence of pulmonary embolism or aortic dissection. No acute abnormality. Left breast nodule. Correlation with mammography is recommended. Reviewed, Interpreted and Dictated by Dayna Crystal MD Transcribed by Bri Jenkins Authenticated and [facility]
--- NOTE | 2023-02-07 12:20 | XR_ITS ---
FINAL REPORT CLINICAL HISTORY: chest pain COMPARISON: 12/14/2021 FINDINGS: PA and lateral views of the chest are obtained. The cardiac and mediastinal silhouettes are within normal limits. There are clustered nodules in the right lower lung which are unchanged, likely related to granulomatous disease. There is no pleural effusion, pneumothorax, or acute osseous abnormality. IMPRESSION: No radiographic evidence of acute cardiac or pulmonary disease. Reviewed, Interpreted and Dictated by Dayna Crystal MD Transcribed by Bri Jenkins Authenticated and [facility]
--- NOTE | 2023-02-07 12:50 | CA_ITS ---
APPROVED REPORT EXAM: Comprehensive 2D, Doppler, and color-flow Echocardiogram Coal Deliverer: Evelin MonetLA Ht: 5 ft 2 in Wt: 226lbs BSA: 2.01 HR: 68 bpm BP: 145/67 mmHg Indications: Chest pain, HTN M-Mode Dimensions RVDd 2.71 cm (0.9-2.6) LVDd 4.34 cm (3.5-5.7) LVDs 2.87 cm (3.5-5.7) IVSd 0.68 cm (0.6-1.1) PWd 0.61 cm (0.6-1.1) EF (Teich) 63.00% FS 33.90% EDV (Teich) 84.90 mL TAPSE 2.60 (<1.7) ESV (Teich) 31.40 mL LV Diastology E/A Ratio 1.06 Aortic Valve AO VTI 30.96 (18-25 cm) Mitral Valve MV A Velocity 99.00 (40-130 cm/s) Left Ventricle The left ventricle is normal size. The left ventricular systolic function is normal. The left ventricular ejection fraction is within the normal range. Proximal septal thickening is noted. There is normal LV segmental wall motion. The left ventricular diastolic function is normal. LVEF is 55-60%. Right Ventricle The right ventricle is normal size. The right ventricular systolic function is normal. Atria The left atrium size is normal. The right atrium size is normal. There is no Doppler evidence of interatrial shunt. Aortic Valve The aortic valve opens well. There is no aortic valvular stenosis. No aortic regurgitation is present. Mitral Valve The mitral valve is normal in structure. No evidence of mitral valve stenosis. There is no mitral valve regurgitation noted. Tricuspid Valve The tricuspid valve leaflets are thin and pliable. Mild tricuspid regurgitation. RVSP is 25-30 mmHg. Pulmonic Valve The pulmonary valve is normal in structure. Trace pulmonic regurgitation. Great Vessels The aortic root is normal in size. The ascending aorta is normal in size. IVC is normal in size and collapses >50% with inspiration. Pericardium There is no pericardial effusion. Other Information Study Quality: Adequate Conclusion Normal biventricular systolic function. Mild TR. Electronically signed by : Montse Rock MD 02/15/2023 18:02:52
== END ==
PROVIDERS: PCP Family Medicine; Visit Provider Internal Medicine
DX: R07.89 Other chest pain (principal); R79.89 Other specified abnormal findings of blood chemistry; R53.83 Other fatigue; Z82.49 Family history of ischemic heart disease and other diseases of the circulatory system
CPT/HCPCS: 71046; 71275; 93306; Q9967

== ENCOUNTER → 2023-02-12 06:45 | Outpatient (CLI) | payer BC, SELFPAY ==
--- NOTE | 2023-02-12 06:53 | US_ITS ---
PROCEDURE INFORMATION: Exam: US Left Breast, Complete Exam date and time: 02/12/2023 7:06 AM Age: 42 years old Clinical indication: Nodule left breast from CT scan TECHNIQUE: Imaging protocol: Complete ultrasound of all four quadrants of the left breast and the retroareolar regions, including ultrasound of the axilla when performed. COMPARISON: MG MM DIG SCREENING MAMM BI W/CAD 12/20/2022 4:41 PM FINDINGS: Breast: Sonographic images of the left breast including the retroareolar region, all 4 quadrants and the axilla do not demonstrate any solid masses. 1.6 cm cyst in the left upper inner quadrant corresponds to the mass on CT scan. Few additional subcentimeter cysts are scattered in the left breast. No architectural distortion or acoustical shadowing. No skin thickening or axillary adenopathy. IMPRESSION: Mass on CT scan in the left upper inner quadrant corresponds to a benign cyst on sonography.Annual bilateral mammographic screening is recommended unless otherwise clinically indicated. ASSESSMENT: BI-RADS Category 2: Benign
== END ==
PROVIDERS: PCP Family Medicine; Visit Provider Nurse Practitioner Family
DX: N63.20 Unspecified lump in the left breast, unspecified quadrant (principal)
CPT/HCPCS: 76641

== ENCOUNTER 2023-07-21 18:00 | Outpatient (CLI) | payer BC, SELFPAY ==
[2023-07-21 16:26] LABS: Basophils # 0.1 K/mm3 (0-0.2); Basophils % 1.6 % (0.1-2.0); Eosinophils # 0.3 K/mm3 (0.0-0.4); Eosinophils % 3.2 % (0.1-12.0); Hematocrit 39.1 % (37.0-47.0); Hemoglobin 12.6 g/dL (12.2-16.2); Lymphocytes # 2.2 K/mm3 (0.7-4.5); Lymphocytes % 28.6 % (10-50); Mean Corpuscular HGB Conc 32.3 g/dL (31.8-35.4); Mean Corpuscular Hemoglobin 29.6 pg (27.0-31.2); Mean Corpuscular Volume 91.6 fl (81-99); Mean Platelet Volume 10.7 fl (7.4-10.4); Monocytes # 0.5 K/mm3 (0.1-1.0); Monocytes % 6.5 % (1.7-9.3); Neutrophils # 4.7 K/mm3 (1.8-7.8); Neutrophils % 60.1 % (37.0-80.0); Platelet Count 488 K/mm3 (142-424); Red Blood Count 4.26 M/mm3 (4.20-5.40); Red Cell Distribution Width 13.7 % (11.5-17.5); White Blood Count 7.8 K/mm3 (4.8-10.8)
[2023-07-21 17:17] LABS: Alanine Aminotransferase 47 U/L (12-78); Albumin Level 4.2 g/dl (3.5-5.0); Albumin/Globulin Ratio 1.5 (1.1-1.8); Alkaline Phosphatase 83 U/L (38-126); Anion Gap 10.6 mEq/L (5-15); Aspartate Amino Transferase 38 U/L (14-36); Bilirubin,Total 0.4 mg/dl (0.2-1.3); Blood Urea Nitrogen 15 mg/dl (7-17); Calcium 9.4 mg/dl (8.4-10.2); Carbon Dioxide 27 mmol/L (22.0-30.0); Chloride 105 mmol/L (98-107); Cholesterol 198 mg/dl (140-200); Estimated Glomerular Filt Rate 91 ml/min (>60); GFR (African American) 111 ML/MIN (>60); Globulin 2.8 g/dL (1.3-3.2); Glucose 107 mg/dl (74-100); HDL Cholesterol 50 mg/dl (40-60); Potassium 4.6 mmoL/L (3.5-5.1); Sodium 138 mmol/L (136-145); Triglycerides 145 mg/dl (30-150); VLDL Cholesterol 29 mg/dL (0-40)
[2023-07-21 17:27] LABS: Direct LDL Cholesterol 102.68 mg/dL (100-129)
[2023-07-21 17:48] LABS: Thyroid Stimulating Hormone 1.27 uIU/mL (0.465-4.68)
[2023-07-21 19:43] LABS: Hemoglobin A1C 5.6 % (4.0-6.0)
[2023-07-23 08:18] LABS: FSH 23.9 mIU/mL (.); LH 11.8 mIU/mL (.)
[2023-07-23 13:26] LABS: Insulin Level Total 21.5 uIU/mL (2.6-24.9)
[2023-07-30 01:14] LABS: Estrogen 77 pg/mL (.)
== END 2023-07-21 23:59 | disposition home or self-care (01) ==
LOC: LAB.DROPOF 07-22 10:37
PROVIDERS: PCP Family Medicine; Visit Provider Family Medicine
DX: Z00.00 Encounter for general adult medical examination without abnormal findings; R74.01 Elevation of levels of liver transaminase levels; E88.819 Insulin resistance, unspecified; Z79.899 Other long term (current) drug therapy
CPT/HCPCS: 80053; 80061; 82672; 83001; 83002; 83036; 83525; 84443; 85025

== ENCOUNTER 2023-07-22 18:00 | Outpatient (CLI) | payer BC, SELFPAY ==
[2023-07-22 17:43] LABS: Vitamin B12 515 pg/mL (239-931)
[2023-07-22 20:00] LABS: 25-OH Vitamin D, Total 74.8 ng/mL (30-100)
== END 2023-07-22 23:59 | disposition home or self-care (01) ==
LOC: LAB.DROPOF 07-23 07:57
PROVIDERS: PCP Family Medicine; Visit Provider Family Medicine
DX: E55.9 Vitamin D deficiency, unspecified (principal)
CPT/HCPCS: 82306; 82607

== ENCOUNTER 2024-03-03 15:15 | Outpatient (CLI) | payer BC, SELFPAY ==
--- NOTE | 2024-03-03 15:19 | US_ITS ---
PROCEDURE INFORMATION: Exam: US Right Breast, Complete US Left Breast, Complete MG Bilateral Screening 3D Mammography Exam date and time: 03/03/2024 3:27 PM Age: 43 years old Clinical indication: Screening examination; chest pain TECHNIQUE: Imaging protocol: Complete ultrasound of all four quadrants of the right breast and the retroareolar regions, including ultrasound of the axilla when performed. Complete ultrasound of all four quadrants of the left breast and the retroareolar regions, including ultrasound of the axilla when performed. Bilateral Screening tomosynthesis and 2D mammography including computer-aided detection (CAD) when performed. COMPARISON: BREASTRT US breast RT complete 05/21/2018 2:48 PM COMPARISON MORE: US BREAST LT COMPLETE 02/12/2023 7:06 AM COMPARISON MORE: MG MM DIG SCREENING MAMM BI W/CAD 12/20/2022 4:41 PM FINDINGS: MAMMOGRAPHY: Breast composition: There are scattered areas of fibroglandular density. Mass: 2 cm ovoid mass in the upper inner left breast. Architectural distortion: None. Calcifications: None. Asymmetric density: None. Skin thickening: None. Axillary adenopathy: None. ULTRASOUND: Right solid masses: None. Right cystic masses: Minimal subcentimeter cystic change is present in the right breast. Right architectural distortion: None. Right acoustical shadowing: None. Right skin thickening: None. Right axillary adenopathy: None. Left solid masses: None. Left cystic masses: 2.3 cm cyst in the 10 o'clock axis corresponding to the mass on mammography. Additional cluster of cysts or a solitary cyst with few internal septations in the 12 o'clock axis 3 cm from the nipple measuring 0.8 cm in combined dimension, unchanged compared to prior sonogram. Left architectural distortion: None. Left acoustical shadowing: None. Left skin thickening: None. Left axillary adenopathy: None. IMPRESSION: No mammographic or sonographic evidence of malignancy. Bilateral cystic change. Annual screening is recommended unless otherwise clinically indicated. ASSESSMENT: BI-RADS Category 2: Benign.
== END 2024-03-03 23:59 | disposition home or self-care (01) ==
LOC: RAD 15:16
PROVIDERS: PCP Family Medicine; Visit Provider Family Medicine
DX: Z12.31 Encounter for screening mammogram for malignant neoplasm of breast (principal); R92.8 Other abnormal and inconclusive findings on diagnostic imaging of breast
CPT/HCPCS: 76641; 77063; 77067

== ENCOUNTER 2024-03-29 10:02 | Outpatient (CLI) | payer BC, SELFPAY ==
[2024-03-29 10:26] LABS: Basophils # 0.1 K/mm3 (0-0.2); Basophils % 0.8 % (0.1-2.0); Eosinophils # 0.2 K/mm3 (0.0-0.4); Eosinophils % 2.1 % (0.1-12.0); Lymphocytes # 2.2 K/mm3 (0.7-4.5); Lymphocytes % 23.3 % (10-50); Mean Corpuscular HGB Conc 32.4 g/dL (31.8-35.4); Mean Corpuscular Hemoglobin 28.3 pg (27.0-31.2); Mean Corpuscular Volume 87.3 fl (81-99); Mean Platelet Volume 11.2 fl (7.4-10.4); Monocytes # 0.6 K/mm3 (0.1-1.0); Monocytes % 6.6 % (1.7-9.3); Neutrophils # 6.2 K/mm3 (1.8-7.8); Neutrophils % 66.8 % (37.0-80.0); Platelet Count 456 K/mm3 (142-424); Red Blood Count 4.24 M/mm3 (4.20-5.40); Red Cell Distribution Width 12.6 % (11.5-17.5); White Blood Count 9.3 K/mm3 (4.8-10.8)
[2024-03-29 10:49] LABS: Hemoglobin A1C 5.7 % (4.0-6.0)
[2024-03-29 11:12] LABS: Albumin/Globulin Ratio 1.6 (1.1-1.8); Estimated Glomerular Filt Rate 91 ml/min (>60); GFR (African American) 110 ML/MIN (>60); Globulin 2.5 g/dL (1.3-3.2)
[2024-03-29 11:13] LABS: Chol/HDL Ratio 2.9 (1-3.5); VLDL Cholesterol 36 mg/dL (0-40)
[2024-03-29 11:30] LABS: 25-OH Vitamin D, Total 59.7 ng/mL (30-100)
[2024-03-29 11:50] LABS: Alanine Aminotransferase 24 U/L (12-78); Albumin Level 4.1 g/dl (3.5-5.0); Alkaline Phosphatase 82 U/L (38-126); Anion Gap 13.7 mEq/L (5-15); Aspartate Amino Transferase 28 U/L (14-36); Bilirubin,Total 0.5 mg/dl (0.2-1.3); Blood Urea Nitrogen 12 mg/dl (7-17); Calcium 9.5 mg/dl (8.4-10.2); Carbon Dioxide 24 mmol/L (22.0-30.0); Chloride 105 mmol/L (98-107); Cholesterol 184 mg/dl (140-200); Glucose 98 mg/dl (74-100); HDL Cholesterol 64 mg/dl (40-60); Potassium 4.7 mmoL/L (3.5-5.1); Sodium 138 mmol/L (136-145); Total Protein,Serum 6.6 g/dl (6.3-8.2); Triglycerides 179 mg/dl (30-150)
[2024-03-29 12:01] LABS: Direct LDL Cholesterol 85.35 mg/dL (100-129)
[2024-03-29 12:20] LABS: Thyroid Stimulating Hormone 2.12 uIU/mL (0.465-4.68)
[2024-03-29 12:40] LABS: Vitamin B12 395 pg/mL (239-931)
[2024-03-30 04:07] LABS: FSH 19.6 mIU/mL (.); Progesterone 0.1 ng/mL (.)
[2024-03-30 08:12] LABS: Insulin Level Total 16.9 uIU/mL (2.6-24.9)
[2024-04-01 14:15] LABS: Estrogen 183 pg/mL (.)
== END 2024-03-29 23:59 | disposition home or self-care (01) ==
LOC: LAB 10:03
PROVIDERS: PCP Family Medicine; Visit Provider Nurse Practitioner Family
DX: E88.819 Insulin resistance, unspecified (principal); R23.2 Flushing; R53.83 Other fatigue
CPT/HCPCS: 36415; 80050; 80053; 80061; 82306; 82533; 82607; 82672; 83001; 83002; 83036; 83525; 84144; 84436; 84443; 85025

== ENCOUNTER 2024-07-28 08:56 | Outpatient (CLI) | payer BC, SELFPAY ==
[2024-07-28 17:24] LABS: Basophils # 0.1 K/mm3 (0-0.2); Basophils % 0.9 % (0.1-2.0); Eosinophils # 0.2 Kmm3 (0.0-0.4); Eosinophils % 1.7 % (0.1-12.0); Hematocrit 37.7 % (37.0-47.0); Hemoglobin 11.8 g/dL (12.2-16.2); Lymphocytes % 22.5 % (10-50); Mean Corpuscular HGB Conc 31.3 g/dL (31.8-35.4); Mean Corpuscular Hemoglobin 28.1 pg (27.0-31.2); Mean Corpuscular Volume 89.8 fl (81-99); Mean Platelet Volume 12.6 fl (7.4-10.4); Monocytes # 0.6 K/mm3 (0.1-1.0); Monocytes % 6.4 % (1.7-9.3); Neutrophils # 6.2 K/mm3 (1.8-7.8); Neutrophils % 68.3 % (37.0-80.0); Nucleated Red Blood Cells # 0 10^3/uL; Nucleated Red Blood Cells % 0 %; Platelet Count 451 K/mm3 (142-424); Red Cell Distribution Width 12.7 % (11.5-17.5); Red Cell Distribution Width-SD 41.9 fL
[2024-07-28 17:54] LABS: Albumin Level 4.1 g/dl (3.5-5.0)
[2024-07-28 17:55] LABS: Chloride 104 mmol/L (98-107); Potassium 4.8 mmoL/L (3.5-5.1); Sodium 136 mmol/L (136-145)
[2024-07-28 17:57] LABS: Alanine Aminotransferase 18 U/L (12-78); Aspartate Amino Transferase 25 U/L (14-36); Blood Urea Nitrogen 9 mg/dl (7-17); Estimated Glomerular Filt Rate 91 ml/min (>60); GFR (African American) 110 ML/MIN (>60)
[2024-07-28 17:58] LABS: Albumin/Globulin Ratio 1.6 (1.1-1.8); Alkaline Phosphatase 81 U/L (38-126); Anion Gap 10.8 mEq/L (5-15); Calcium 9.3 mg/dl (8.4-10.2); Carbon Dioxide 26 mmol/L (22.0-30.0); Chol/HDL Ratio 2.2 (1-3.5); Cholesterol 150 mg/dl (140-200); Globulin 2.6 g/dL (1.3-3.2); Glucose 67 mg/dl (74-100); HDL Cholesterol 69 mg/dl (40-60); Total Protein,Serum 6.7 g/dl (6.3-8.2); Triglycerides 106 mg/dl (30-150); VLDL Cholesterol 21 mg/dL (0-40)
[2024-07-28 18:11] LABS: Direct LDL Cholesterol 63.73 mg/dL (100-129)
[2024-07-28 18:17] LABS: Bilirubin,Total 0.1 mg/dl (0.2-1.3)
[2024-07-28 19:11] LABS: Hemoglobin A1C 5.2 % (4.0-6.0)
[2024-07-28 19:12] LABS: 25-OH Vitamin D, Total 70.5 ng/mL (30-100)
[2024-07-28 19:21] LABS: HIV Combo NEGATIVE (Negative)
[2024-07-28 19:30] LABS: Vitamin B12 413 pg/mL (239-931)
[2024-07-28 19:48] LABS: Thyroid Stimulating Hormone 1.85 uIU/mL (0.465-4.68)
[2024-07-28 20:52] LABS: Hepatitis C Ab Qual. W/ RFX NEGATIVE (Negative)
[2024-07-30 10:18] LABS: Insulin Level Total 22.6 uIU/mL (2.6-24.9)
== END 2024-07-28 23:59 | disposition home or self-care (01) ==
LOC: LAB.DROPOF 07-30 08:57
PROVIDERS: PCP Family Medicine; Visit Provider Family Medicine
DX: Z00.00 Encounter for general adult medical examination without abnormal findings (principal); Z11.59 Encounter for screening for other viral diseases; Z11.4 Encounter for screening for human immunodeficiency virus [HIV]; R53.83 Other fatigue; E88.819 Insulin resistance, unspecified; Z68.41 Body mass index [BMI] 40.0-44.9, adult; E66.9 Obesity, unspecified
CPT/HCPCS: 80053; 80061; 82306; 82607; 83036; 83525; 84443; 85025; 86803; 87389

== ENCOUNTER 2025-03-16 13:53 | Outpatient (CLI) | payer OTHER, SELFPAY ==
--- NOTE | 2025-03-16 14:00 | MM_ITS ---
PROCEDURE INFORMATION: Exam: US Right Breast, Complete US Left Breast, Complete MG Bilateral Screening 3D Mammography Exam date and time: 03/16/2025 1:53 PM Age: 44 years old Clinical indication: Screening examination TECHNIQUE: Imaging protocol: Complete ultrasound of all four quadrants of the right breast and the retroareolar regions, including ultrasound of the axilla when performed. Complete ultrasound of all four quadrants of the left breast and the retroareolar regions, including ultrasound of the axilla when performed. Bilateral Screening tomosynthesis and 2D mammography including computer-aided detection (CAD) when performed. COMPARISON: MG MM DIG SCREENING MAMM BI W/CAD 03/03/2024 3:27 PM FINDINGS: MAMMOGRAPHY: Breast composition: Mass: None. Architectural distortion: None. Calcifications: None. Asymmetric density: None. Skin thickening: None. Axillary adenopathy: None. ULTRASOUND: Right solid masses: None. Right cystic masses: Minimal subcentimeter cystic change is present in the right breast. Right architectural distortion: None. Right acoustical shadowing: None. Right skin thickening: None. Right axillary adenopathy: None. Left solid masses: None. Left cystic masses: Minimal subcentimeter cystic change is present in the left breast. Left architectural distortion: None. Left acoustical shadowing: None. Left skin thickening: None. Left axillary adenopathy: None. IMPRESSION: No mammographic or sonographic evidence of malignancy. Annual screening is recommended unless otherwise clinically indicated. ASSESSMENT: BI-RADS Category 2: Benign.
--- OUTSIDE RECORDS SUMMARY | 2025-03-16 15:19 | XMS_ITS | Clinical Summary ---
Author Organization Healthcare Address [address] [place] [address] Care Team Providers Care Project Management Manager Name Role Phone Jack Bryan MD Primary Care Provider [phone] Allergies No known active allergies Medications norgestimate-eth inyl estradiol (Ortho Tri-Cyclen LO) 0.18/0.215/0.25 MG-25 MCG tablet Act luz methocarbamol (Robaxin) 750 MG tabletIndication s:Arm pain, central, left Take 1 tablet (750 mg total) by mouth 4 (four) times a day for 10 days. 40 tablet 10/10/2021 Active phentermine (Adipex-P) 37.5 MG tablet Take 1 tablet (37.5 mg) by mouth 1 (one) time each day before breakfast. 30 tablet 08/23/2022 Active Active Problems No known active problems Family History Medical History Relation Name Comments Diabetes Maternal Grandfather Relation Name Status Comments Maternal Grandfather Social History Tobacco Use Types Packs/Day Years Used Date Smoking Tobacco: Never Smokeless Tobacco: Never Tobacco Cessation:Counseling Given: Not Answered Alcohol Use Standard Drinks/Week Comments Not Currently 0 (1 standard drink = 0.6 oz pur e alcohol) PHQ-2 Answer Date Recorded Patient Health Questionnaire-2 Score 0 09/04/2021 Comments Unknown Sex and Gender Information Value Date Recorded Sex Assigned at Female 07/02/2021 5:55 PM EDT Legal Sex Female 2:36 PM EST Gender Identity Female 07/02/2021 5:55 PM EDT Sexual Orientation Not on file Last Filed Vital Signs Vital Sign Reading Time Taken Comments Blood Pressure 109/61 07/23/2022 12:38 PM EDT Pulse 100 07/23/2022 12:38 PM EDT Temperature 36.8 C (98.3 F) 07/03/2021 1:26 PM EDT Respiratory Rate - - Oxygen Saturation 100% 09/04/2021 1:17 PM EDT Inhaled Oxygen Concentration - - Weight 103 kg (226 lb 13.7 oz) 07/23/2022 12:38 PM EDT Height 162.6 cm (5' 4 ) 07/23/2022 1:15 PM EDT Body Mass Index 38.94 07/23/2022 12:38 PM EDT Plan of Treatment Health Maintenance Due Date Last Done Comments [facility]-Depression Screening 1979 [facility]-/Child/Adol SDOH Screenings 1979 [facility]-Varicella Vaccines (1 of 2 - 13+ 2-dose series) 09/02/1992 [facility]- SDOH Screenings 09/02/1997 [facility]-Adult SDOH Screenings 09/02/1997 [facility]-DTaP,Tdap,and Td Vaccine s (1 - Tdap) 09/02/1998 [facility]-Hepatitis B Vaccines (1 of 3 - 19+ 3-dose series) 09/02/1998 [facility]-Pap Smear 09/02/2000 [facility]-Cervical Cancer Screening 09/02/2009 [facility]-HPV/Cotest 09/02/2009 CT Colonography 09/02/2024 Colonoscopy 09/02/2024 FIT-DNA 09/02/2024 FIT 09/02/2024 FOBT 09/02/2024 Sigmoidoscopy 09/02/2024 [facility]-Colorectal Cancer Screening 09/02/2024 [id number] Vaccine ( season) 2024 02/09/2021, 05/05/2020, 04/07/2020 [facility]-Influenza Vaccine (#1) 11/29/202401/28, 01/09/2022 [facility]-Zoster Vaccines (1 of 2) 09/02/2029 HPV Vaccines (No Doses Required) Completed [facility]-HIB Vaccines Aged Out No longer e ligible based on patient's age to complete this topic [facility]-Hepatitis A Vaccines Aged Out No longer eligible based on patient's age to complete this topic [facility]-IPV Vaccines Aged Out No longer e ligible based on patient's age to complete this topic [facility]-Pneumococcal Vaccine: Pediatrics (0 to 5 Years) and At-Risk Patients (6 to 49 Years) Aged Out No longer eligible b ased on patient's age to complete this topic [facility]-Rotavirus Vaccines Aged Out No lo nger eligible based on patient's age to complete this topic Insurance ANTHEM Care Teams Project Management Manager Relationship Specialty Start Date End Date Jack Bryan MD [address] [place] [address] [address] [place] [address] PCP - General 05/16/21
--- OUTSIDE RECORDS SUMMARY | 2025-03-16 15:19 | XMS_ITS | Encounter Summary ---
Author Organization [facility] Address [address] [id number] Care Team Providers Care Product Consultant Name Role Phone Jack Bryan MD Primary Care Provider [phone] Reason for Visit * Reason Comments Med Refill Encounter Details Date Type Department Care Team (Late st Contact Info) Description 11/28/2022 [facility] End[facility] [address] [place] [phone] Elaine Hurtado MBBS [address] [id number] Social History Tobacco Use Types Packs/Day Years Used Date Smoking Tobacco: Never Smokeless Tobacco: Never Alcohol Use Standard Drinks/Week Comments Not Currently 0 (1 standard drink = 0.6 oz pur e alcohol) PHQ-2 Answer Date Recorded Patient Health Questionnaire-2 Score 0 09/04/2021 Comments Unknown Sex and Gender Information Value Date Recorded Sex Assigned at Female 07/02/2021 5:55 PM EDT Legal Sex Female 2:36 PM EST Gender Identity Female 07/02/2021 5:55 PM EDT Sexual Orientation Not on file documented as of this encounter Miscellaneous Notes * Telephone Encounter - Isidro Paz PharmD - 11/28/2022 10:12 AM EDT Refill request does not meet protocol. Sending to clinic for review. Additional info: Controlled substance. documented in this encounter Plan of Treatment Not on file documented as of this encounter Visit Diagnoses Not on filedocumented in this encounter Additional Health Concerns Assessment Noted Time A fall risk assessment has been complete d for the patient 01/01/2022 8:28 AM EDT A Body Mass Index follow-up plan has been documented for the patient 07/23/2022 1:59 PM EDT documented as of this encounter Care Teams Product Consultant Relationship Specialty Start Date End Date Jack Bryan MD [facility] [address] [place] [address] PCP - General 05/16/21 documented as of this encounter
== END 2025-03-16 23:59 | disposition home or self-care (01) ==
LOC: RAD 13:53
PROVIDERS: PCP Family Medicine; Visit Provider Family Medicine
DX: Z12.31 Encounter for screening mammogram for malignant neoplasm of breast (principal); R92.323 Mammographic fibroglandular density, bilateral breasts; N63.0 Unspecified lump in unspecified breast
CPT/HCPCS: 76641; 77063; 77067